=== PATIENT | male | born 1990 | race Asian ===

== ENCOUNTER 2018-08-01 17:28 | Emergency (ER) | payer BC, OTHER ==
[~2018-08-01] VITALS: Ht 152.4 cm; Wt 107.0 kg
[2018-08-01 17:29] VITALS: Ht 152.4 cm; Wt 107.0 kg
[2018-08-01] MEDS ORDERED: IBUPROFEN 800 MG TAB PO ONE (18:00)
[2018-08-01] MEDS ORDERED: IBUP800T48 PO (18:51)
[2018-08-01] MEDS ORDERED: BENZ200C68 PO (18:51)
[2018-08-01 19:09] VITALS: BP 125/86; PULSE 103; RESP 17
--- NOTE | 2018-08-01 21:01 | ERD ---
ER Documentation Chief Complaint Chief Complaint FEVER SINCE YESTERDAY HPI 28-year-old male with no significant past medical history presenting to the emergency department complaining of fever and full body aches from "head to toe" for 1 day. He has also had dry cough and headache which he rates a 4/10 in severity and intermittent. He states Tylenol alleviates his symptoms at home. 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 He denies any neck pain or neck stiffness. He denies any photophobia. He denies nasal congestion or sore throat. No other symptoms reported at this time. ROS All systems reviewed and are negative except as per history of present illness. Medications Home Meds Active Scripts Ibuprofen* (Motrin*) 800 Mg Tab, 800 MG PO Q6, #30 TAB Prov:SUMMER HAYNES PA-C 08/01/18 Benzonatate* (Benzonatate*) 200 Mg Capsule, 200 MG PO TID PRN for COUGH, #15 CAP Prov:SUMMER HAYNES PA-C 08/01/18 Allergies Allergies: Coded Allergies: amoxicillin (Verified Allergy, Severe, facial & hand swelling with rashes, 08/01/18) Uncoded Allergies: PENICILLIN (Allergy, Intermediate, Rashes, 08/01/18) PMhx/Soc Medical and Surgical Hx: pt denies Medical Hx, pt denies Surgical Hx History of Surgery: No Anesthesia Reaction: No Hx Neurological Disorder: No Hx Respiratory Disorders: No Hx Cardiac Disorders: No Hx Psychiatric Problems: No Hx Miscellaneous Medical Probl: No Hx Alcohol Use: Yes (occasionally.) Hx Substance Use: No Hx Tobacco Use: No Smoking Status: Never smoker FmHx Family History: No diabetes Physical Exam Vitals Vital Signs Date Temp Pulse Resp B/P (MAP) Pulse Ox O2 O2 Flow FiO2 Time Delivery Rate 08/01/18 100.4 103 17 125/86 98 Room Air 19:09 (99) 08/01/18 101.7 18:26 08/01/18 101.7 117 18 154/86 99 17:29 (108) Physical Exam Const: No acute distress Head: Atraumatic Eyes: Normal Conjunctiva ENT: Normal External Ears, Nose and Mouth. Neck: Full range of motion. No meningismus. Resp: Clear to auscultation bilaterally Cardio: Regular rate and rhythm, no murmurs Skin: No petechiae or rashes Ext: No cyanosis, or edema Neur: Awake and alert Psych: Normal Mood and Affect Results 24 hrs Current Medications Medications Dose Sig/Spike Start Time Status Last (Trade) Ordered Route PRN Stop Time Admin Dose Reason Admin Ibuprofen 800 mg ONCE ONCE 08/01/18 DC 08/01/18 (Motrin) PO 18:00 18:26 08/01/18 18:01 [place] [id number] Radiology Main Line: [phone] DIAGNOSTIC IMAGING REPORT Patient: STONEY SAHNI : 1990 Age: 28 Sex: M MR #: [id number] DOS: 08/01/18 0000 Ordering MD: SUMMER HAYNES PA-C Location: [facility] Room/Bed: PROCEDURE: XR Chest. CLINICAL INDICATION: Cough . TECHNIQUE: Single frontal chest x-ray. COMPARISON: None. FINDINGS: The lungs are clear of acute infiltrates, edema, effusions, or masses.. The cardiomediastinal silhouette is unremarkable. The osseous structures are intact. IMPRESSION: No acute cardiopulmonary disease. RPTAT: QQ .Cody Vaz MD, MD Date Time Electronically viewed and signed by .Cody Vaz MD, on 08/01/2018 18:31 .L/ CC: SUMMER HAYNES PA-C [phone] Procedures/MDM 28-year-old male presenting to the emergency department complaining of fever and full body aches and cough. Chest x-ray was negative for any abnormalities. Full report may be viewed above. The patient is nontoxic and well-appearing. The patient's clinical presentation is very consistent with an acute viral syndrome. The patient does not exhibit any clinical signs or symptoms concerning for serious bacterial infection or systemic illness. Based on history and clinical exam findings the patient does not appear to have evidence of pneumonia, strep pharyngitis, urinary tract infection, bacteremia, sepsis, or meningitis. For these reasons I do not believe it is necessary to obtain laboratory testing or further diagnostic imaging. I believe it would be appropriate for symptom control, and close outpatient primary care follow-up. Based on patient's history of present illness and physical examination the decision was made to discharge. There is no evidence of life threatening injuries or illnesses at this time. On re-examination, patient resting in no distress, stable vital signs, reports feeling better and safe for discharge with outpatient follow up with PMD in 1-2 days. Patient given return precautions. Departure Diagnosis: Primary Impression: Flu-like symptoms Condition: Fair Patient Instructions: Influenza (Adult) Referrals: [facility] YOU HAVE RECEIVED A MEDICAL SCREENING EXAM AND THE RESULTS INDICATE THAT YOU DO NOT HAVE A CONDITION THAT REQUIRES URGENT TREATMENT IN THE EMERGENCY DEPARTMENT. FURTHER EVALUATION AND TREATMENT OF YOUR CONDITION CAN WAIT UNTIL YOU ARE SEEN IN YOUR DOCTORS OFFICE WITHIN THE NEXT 1-2 DAYS. IT IS YOUR RESPONSIBILITY TO MAKE AN APPOINTMENT FOR FOLOW-UP CARE. IF YOU HAVE A PRIMARY DOCTOR --you should call your primary doctor and schedule an appointment IF YOU DO NOT HAVE A PRIMARY DOCTOR YOU CAN CALL OUR PHYSICIAN REFERRAL HOTLINE AT IF YOU CAN NOT AFFORD TO SEE A PHYSICIAN YOU CAN CHOSE FROM THE FOLLOWING [facility] [address] [facility]. [facility] [address] [facility] [facility] [address] [facility] [address] [facility]. [facility] [address] [facility]. [facility]. [address] Additional Instructions: Call your primary care doctor TOMORROW for an appointment during the next 1-2 days.See the doctor sooner or return here if your condition worsens before your appointment time. SUMMER HAYNES PA-C August 01, 2018 21:01
== END 2018-08-01 19:09 | disposition home or self-care (01) ==
LOC: FTE 17:28
DX: R50.9 Fever, unspecified (principal); R05 Cough; R51 Headache
CPT/HCPCS: 71045